=== PATIENT | female | born 1970 | race Two or more races ===

== ENCOUNTER 2022-11-13 18:23 | Emergency (ER) | payer MEDICAID, OTHER ==
[~2022-11-13] VITALS: Ht 165.1 cm; Wt 120.0 kg
[2022-11-13 18:53] VITALS: BP 139/82
[2022-11-13] MEDS ORDERED: IBUP800T27 PO (21:33)
[2022-11-13] MEDS ORDERED: CYCL-837 PO (21:33)
[2022-11-13] MEDS ORDERED: KETOROLAC TROMETH 60MG/2ML VIAL IM ONE (21:45)
== END 2022-11-14 01:11 | disposition home or self-care (01) ==
LOC: ER 18:32
DX: M77.42 Metatarsalgia, left foot (principal); M77.41 Metatarsalgia, right foot; J45.909 Unspecified asthma, uncomplicated; Z90.49 Acquired absence of other specified parts of digestive tract; Z79.1 Long term (current) use of non-steroidal anti-inflammatories (NSAID); Z79.899 Other long term (current) drug therapy; Z88.5 Allergy status to narcotic agent
CPT/HCPCS: 73630; 96372; 99283; J1885

== ENCOUNTER 2023-09-17 12:24 | Emergency (ER) | payer MEDICAID ==
[~2023-09-17] VITALS: Ht 162.6 cm; Wt 113.6 kg
[~2023-09-17 12:24] MED LIST: CYCL-837 PO; IBUP-1456 PO
[2023-09-17] MEDS ORDERED: IPRATROPIUM BROM 0.5 MG/2.5ML INH SOL NEB ONE (12:45)
[2023-09-17] MEDS ORDERED: methylPREDNISolone SOD SUCC 125 MG/2 ML VL IV ONE (12:45)
[2023-09-17] MEDS ORDERED: ALBUTEROL SULF 2.5 MG/0.5ML(0.5%) NEB SOLN NEB ONE (12:45)
[2023-09-17 13:06] VITALS: BP 123/81; PULSE 105; RESP 20; O2SAT 95
[2023-09-17 13:41] LABS: Basophils # (auto) 0 10 ^3/uL (0-0.2); Basophils % (auto) 0.4 % (0.0-2.0); Eosinophils # (auto) 0.1 10 ^3/uL (0-0.8); Eosinophils % (auto) 1.6 % (0.0-7.0); Hematocrit 48.5 % (36.0-46.0); Hemoglobin 16.2 g/dL (12.2-16.2); Lymphocytes # (auto) 0.7 10 ^3/uL (0.4-5.4); Lymphocytes % (auto) 8.2 % (10.0-50.0); Mean Corpuscular Hemoglobin 29.2 pg (28.0-32.0); Mean Corpuscular Hgb Conc. 33.5 g/dL (32.0-36.0); Mean Corpuscular Volume 87.3 fL (80.0-100.0); Monocytes # (auto) 0.8 10 ^3/uL (0-1.3); Monocytes % (auto) 8.8 % (0.0-12.0); Neutrophils # (auto) 7.3 10 ^3/uL (1.6-8.6); Nucleated Red Blood Cells % 0.2 %; Red Blood Cells 5.55 10^6/uL (4.0-5.20); Red Cell Distribution Width 14.7 % (11.8-14.3); White Blood Cell 9.1 10^3/uL (4.4-10.8)
[2023-09-17 13:55] LABS: Alanine Aminotransferase 75 U/L (7-40); Albumin 4.7 g/dL (3.2-4.8); Alkaline Phosphatase 105 U/L (46-116); Anion Gap 10 (5-15); Aspartate Aminotransferase 35 U/L (13-40); BUN/Creatinine Ratio 15.6 (10.0-20.0); Bilirubin, Total 0.5 mg/dL (0.2-1.0); Blood Urea Nitrogen 12 mg/dL (9-23); Carbon Dioxide 24 mmol/L (20-30); Chloride 102 mmol/L (98-107); Glucose 111 mg/dL (74-106); Magnesium 2.2 mg/dL (1.6-2.6); Potassium 4.1 mmol/L (3.5-5.1); Sodium 136 mmol/L (136-145); Total Protein 6.8 g/dL (5.7-8.2)
== END 2023-09-17 13:00 | disposition left against medical advice (07) ==
LOC: ER 12:24 → EDBD 12:24 → ER 13:00
DX: R05.9 Cough, unspecified (principal); R06.02 Shortness of breath; J45.909 Unspecified asthma, uncomplicated; Z98.890 Other specified postprocedural states; Z79.899 Other long term (current) drug therapy
CPT/HCPCS: 36415; 36600; 80053; 82805; 83605; 83735; 83880; 84484; 85025; 85379; 87040; 93005